=== PATIENT | female | born 1975 | race Caucasian/White ===

== ENCOUNTER 2019-12-08 16:43 | Outpatient (CLI) | payer BC, SELFPAY ==
[2019-12-08 17:15] LABS: HCT 39.1 % (36.0-46.0); Mean Corp. HGB Concentration 30.7 g/dL (32.0-36.0); Mean Corpuscular Hemoglobin 27.9 pg (27.0-33.0); Mean Corpuscular Volume 90.9 fL (80-95); Mean Platelet Volume 10.2 fL (8.0-11.0); Platelet Count 361 x1000/uL (130-400); RBC Distribution Width 15.8 % (11.7-14.6); White Blood Cell Count 8.71 k/cumm (4.4-10.8)
[2019-12-08 17:25] LABS: INR 0.9 (0.9-1.1); PTT Activated 25.8 sec (21.0-31.4); Prothrombin Time 9.3 sec (9.3-11.0)
[2019-12-08 17:50] LABS: Anion Gap 12.1 mmol/L (3-11); BUN 10 mg/dL (7-18); CO2 23.9 mmol/L (21.0-32.0); CREATININE 0.73 mg/dL (0.55-1.02); Calcium 9.3 mg/dL (8.5-10.1); Chloride 105 mmol/L (98-107); Glucose 109 mg/dL (74-106); Potassium 4.6 mmol/L (3.5-5.1); Sodium 141 mmol/L (136-145)
== END 2019-12-08 17:03 ==
PROVIDERS: Obstetrics & Gynecology; PCP Family Medicine; Visit Provider Family Medicine
DX: N85.8 Other specified noninflammatory disorders of uterus (principal); N93.8 Other specified abnormal uterine and vaginal bleeding
CPT/HCPCS: 36415; 80048; 85027; 85610; 85730

== ENCOUNTER 2019-12-15 10:09 | Outpatient (REF) | payer BC, SELFPAY ==
--- NOTE | 2019-12-15 09:45 | PAPFT_PTH ---
PATIENT: KAJAL MARTINEZ LOC: [facility] U#:[id number] AGE/SX: 44/F ROOM: RE12/15/[address]: TERI Dno : 1975 BED: DIS: 12/15/2019 SPEC #: [id number] RECD: 12/15/19 12:53 STATUS: MUNDO REYael #: [id number] MARCIAL: 12/15/19 09:[address]: Omayra Wells DEPT: [facility] Cytology RECD BY: Jenni Meyers ENTERED: 12/15/19 12:54 SP TYPE: PAPFT OTHR DR: Faustino Dahl Tissues: 1 - CX/ENDOCX FOR PAP SMEARS Procedures: PAP THIN PREP/[facility] Screening Comments: [id number] (UNSATISFACTORY FOR EVALUATION) (PLEASE GALVAN - PT SCHEDULED FOR SURGERY)
== END 2019-12-15 10:29 ==
LOC: LBN 10:09
PROVIDERS: PCP Family Medicine; Visit Provider Nurse Practitioner Family
DX: Z12.4 Encounter for screening for malignant neoplasm of cervix (principal); Z11.51 Encounter for screening for human papillomavirus (HPV)
CPT/HCPCS: 88142

== ENCOUNTER 2019-12-22 09:44 | Outpatient (REF) | payer BC, SELFPAY ==
--- NOTE | 2019-12-22 08:50 | PAPFT_PTH ---
PATIENT: KAJAL MARTINEZ LOC: [facility] U#:[id number] AGE/SX: 44/F ROOM: RE12/22/[address]: Tanya Ervin : 1975 BED: DIS: 12/22/2019 SPEC #: [id number] RECD: 12/22/19 12:50 STATUS: MUNDO PERSAUD #: [id number] MARCIAL: 12/22/19 08:[address]: Tanya Ervin DEPT: [facility] Cytology RECD BY: Jenni Meyers ENTERED: 12/22/19 12:51 SP TYPE: PAPFT OTHR DR: Faustino Dahl Tissues: 1 - CX/ENDOCX FOR PAP SMEARS Procedures: PAP THIN PREP/UVM Screening HPV DNA PROBE Comments: [id number]
[2019-12-23 14:53] LABS: Chlamydia Result Negative (Negative); GC Result Negative (Negative)
== END 2019-12-22 10:04 ==
LOC: LBN 09:44
PROVIDERS: PCP Family Medicine; Visit Provider Obstetrics & Gynecology Gynecology
DX: Z11.3 Encounter for screening for infections with a predominantly sexual mode of transmission (principal); Z12.4 Encounter for screening for malignant neoplasm of cervix
CPT/HCPCS: 87491; 87591; 88142; 87624

== ENCOUNTER 2020-02-13 02:15 | Outpatient (CLI) | payer BC, SELFPAY ==
[2020-02-13 11:48] LABS: Abs Immature Grans 0.01 k/cumm (0.0-0.09); Absolute Basophil Count 0.02 k/cumm (0.0-0.2); Absolute Eosinophil Count 0.11 k/cumm (0.0-0.7); Absolute Lymphocyte Count 1.94 k/cumm (1.2-3.4); Absolute Monocyte Count 0.66 k/cumm (0.11-0.7); Absolute Neutrophil Count 4.49 k/cumm (1.2-6.7); Basophils % 0.3; Eosinophils % 1.5; HCT 40.2 % (36.0-46.0); HGB 12.4 g/dL (12.0-15.5); Immature Grans % 0.1 %; Lymphocytes % 26.8; Mean Corp. HGB Concentration 30.8 g/dL (32.0-36.0); Mean Corpuscular Hemoglobin 25.8 pg (27.0-33.0); Mean Corpuscular Volume 83.6 fL (80-95); Mean Platelet Volume 10.9 fL (8.0-11.0); Monocytes % 9.1; Neutrophils % 62.2; Platelet Count 262 x1000/uL (130-400); RBC 4.81 m/cumm (4.00-5.20); RBC Distribution Width 14.4 % (11.7-14.6); White Blood Cell Count 7.23 k/cumm (4.4-10.8)
[2020-02-13 12:16] LABS: ALT 33 U/L (14-59); AST 19 U/L (15-37); Albumin 4.2 g/dL (3.4-5.0); Alkaline Phosphatase 83 U/L (46-116); Anion Gap 10.3 mmol/L (3-11); BUN 21 mg/dL (7-18); Bilirubin, Total 0.4 mg/dL (0.2-1.0); CO2 26.7 mmol/L (21.0-32.0); CREATININE 0.89 mg/dL (0.55-1.02); Calcium 9.6 mg/dL (8.5-10.1); Chloride 103 mmol/L (98-107); Glucose 105 mg/dL (74-106); Potassium 4.6 mmol/L (3.5-5.1); Sodium 140 mmol/L (136-145); Total Protein 7.9 g/dL (6.4-8.2)
[2020-02-13 12:17] LABS: HCG Quant, Pregnancy < 1 mIU/mL (1-3)
[2020-02-15 08:26] LABS: COVID-19 RT-PCR UVMMC Result Negative (Negative)
== END 2020-02-13 02:35 ==
PROVIDERS: PCP Family Medicine; Visit Provider Obstetrics & Gynecology Gynecology
DX: N93.9 Abnormal uterine and vaginal bleeding, unspecified (principal); N94.6 Dysmenorrhea, unspecified; D25.9 Leiomyoma of uterus, unspecified; Z11.59 Encounter for screening for other viral diseases
CPT/HCPCS: 36415; 80053; 86850; 86900; 86901; U0003; 84702; 85025

== ENCOUNTER 2020-02-16 16:16 | Observation (INO) | payer BC, SELFPAY ==
[2020-02-16] VITALS (18 sets, daily range): BP systolic 92–157; BP diastolic 51–97; PULSE 64–87; RESP 12–24; TEMP 36.4–36.7; O2SAT 93–100
[2020-02-16] MEDS: Lactated Ringers 1,000 ML 125 ML IV ×3 (11:55→23:03)
[2020-02-16] MEDS: ceFAZolin 2 GM/50 ML BAG IVPB (13:13)
--- NOTE | 2020-02-16 15:20 | UTER_PTH ---
PATIENT: KAJAL MARTINEZ LOC: [facility] U#:[id number] AGE/SX: 44/F ROOM: OBS.306 RE02/16/[address]: Tanya Ervin : 1975 BED: A DIS: 02/17/2020 SPEC #: [id number] RECD: 02/16/20 16:17 STATUS: MUNDO REQ #: [id number] MARCIAL: 02/16/20 15:[address]: Tanya Ervin DEPT: Surgical Specimen RECD BY: Jenni Meyers ENTERED: 02/16/20 16:18 SP TYPE: UTER OTHR DR: Faustino Dahl Tissues: 1 - UTERUS W OR W/O OVARIES(NOT TUMOR/PROLAPSE) Procedures: GROSS AND MICRO LEVEL 5 Comments: [id number]
[2020-02-16] MEDS: Bupivacaine 0.25% Pres-Free 30 ML VIAL (15:35)
[2020-02-16] MEDS: Docusate Sodium 100 MG CAP PO (20:09)
[2020-02-17] VITALS (7 sets, daily range): BP systolic 116–117; BP diastolic 74–79; PULSE 58–68; RESP 16–18; TEMP 36.5–36.9; O2SAT 97–99
[2020-02-17] MEDS: Ondansetron 4 MG/2 ML VIAL IVP (02:35)
[2020-02-17] MEDS: Ibuprofen 600 MG TAB PO (06:08)
[2020-02-17] MEDS: Acetaminophen 500 MG TAB PO (06:08)
[2020-02-17] MEDS: Lactated Ringers 1,000 ML 125 ML IV (06:31)
[2020-02-17 07:13] LABS: HCT 37.4 % (36.0-46.0); HGB 11.5 g/dL (12.0-15.5); Mean Corp. HGB Concentration 30.7 g/dL (32.0-36.0); Mean Corpuscular Hemoglobin 25.8 pg (27.0-33.0); Mean Corpuscular Volume 83.9 fL (80-95); Mean Platelet Volume 10.9 fL (8.0-11.0); Platelet Count 247 x1000/uL (130-400); RBC 4.46 m/cumm (4.00-5.20); RBC Distribution Width 14.6 % (11.7-14.6); White Blood Cell Count 13.11 k/cumm (4.4-10.8)
[2020-02-17 07:26] LABS: Anion Gap 4.9 mmol/L (3-11); BUN 14 mg/dL (7-18); CO2 31.1 mmol/L (21.0-32.0); CREATININE 0.78 mg/dL (0.55-1.02); Calcium 9.3 mg/dL (8.5-10.1); Chloride 102 mmol/L (98-107); Glucose 106 mg/dL (74-106); Potassium 4.3 mmol/L (3.5-5.1); Sodium 138 mmol/L (136-145)
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
[2020-02-17] MEDS: Docusate Sodium 100 MG CAP PO (08:16)
--- NOTE | 2020-02-18 10:24 | ROE_ITS ---
Date of service: 02/18/20 Time of Service: 10:24 Operative Note Operative Note DATE OF PROCEDURE: 02/16/20 PRE-OP DIAGNOSIS: Abnormal uterine bleeding dysmenorrhea and fibroid uterus POST-OP DIAGNOSIS: same PROCEDURE: Laparoscopic-assisted vaginal hysterectomy with bilateral salpingectomy and bladder cystoscopy SURGEON: Tanya Ervin APPLICATION ASSISTANT: Roc Harrell ANESTHESIA: GETA and spinal ESTIMATED BLOOD LOSS: 100 PATHOLOGY: other (Uterus cervix and fallopian tubes to pathology) COMPLICATIONS: None Patient was transported to: PACU Patient's condition: stable Indications: Patient is a 44-year-old P4 female with a enlarged fibroid uterus dysmenorrhea and menorrhagia not responsive to medical therapy. Findings: Fibroid uterus with a large fundal fibroid and smaller anterior wall fibroid in the lower uterine segment. Procedure Description: Patient was taken to the operating room she is placed in the sitting position and spinal anesthesia was administered without difficulty. Preoperative antibiotics were administered in the surgical timeout was performed. She was then placed in the dorsal supine position and general endotracheal anesthesia was administered without difficulty. She is placed in the dorsal lithotomy position in yellowfin stirrups prepped and draped in the usual sterile fashion. Carvalho catheter was inserted to gravity drainage. A Rosales uterine manipulator was inserted into the uterine cavity and a tenaculum attached to the anterior lip of the cervix and both instruments remained in place for the laparoscopic surgery. Attention was turned to the patient's abdomen where a vertical skin incision was made in the umbilical fold after infiltration of the site with quarter percent Marcaine without epinephrine. Through this incision a varies needle was introduced and intra-abdominal placement confirmed by drop in the intra- abdominal pressure. Pneumoperitoneum was established and 12 mm Visiport was then placed under direct observation into the abdominal cavity. Patient was placed in Trendelenburg the sites for insertion infiltrated with quarter percent Marcaine without epinephrine and two 5 mm lower ports were placed in the right and left lower quadrants respectively. Left round ligament was clamped cauterized and transected using LigaSure cautery. The left fallopian tube was grasped and followed out to its fimbriated end and the mesosalpinx was clamped, advised, and transected using LigaSure electrocautery to the level of the uterine cornua. The attachments of the right ovary to the body of the uterus were sequentially clamped, cauterized, and transected with the LigaSure device. The left anterior and posterior portions of the broad ligament were then clamped, cauterized, and transected to the level of the bladder flap which was dissected off of the lower uterine segment with a combination of gentle dissection and electrocautery. The left uterine vessels were skeletonized and sequentially clamped cauterized and transected. Attention was turned to the patient's right side where in a similar fashion LigaSure device was used to separate the right fallopian tube from its attachment to the ovary and the right ovary's attachments to the uterine serosa. Both the anterior and posterior leaves of the broad ligament were opened and the anterior leaf off of the lower uterine segment and the bladder flap created. Right uterine vessels were skeletonized clamped cauterized and transected. Attention was then turned to the vaginal portion of the procedure. Pneumoperitoneum was reduced instruments removed from the patient's abdomen with trocars left in place. Uterine manipulator and single-tooth tenaculum were removed to Crispin clamps were placed on the anterior and posterior portions of the uterine cervix and the body of the cervix was cauterized with the Bovie electrocautery in a circumferential fashion. The uterosacral ligaments were shortened digitally and the bladder was dissected off of the body of the cervix and the anterior cul-de-sac was entered sharply with a Metzenbaum scissors. Curved Truong scissors were used to enter the posterior cul-de-sac and a long duckbill speculum was placed through this incision and held in place the major the case. The right uterosacral cardinal ligament complex was clamped transected and suture-ligated and held long. Similar technique was carried out on the contralateral uterosacral/cardinal ligament complex. The remaining right and left broad ligament was sequentially clamped cauterized and transected to the level of the uterine cornua. Any remaining attachments of the broad ligament to the uterus were clamped cauterized and transected. The uterus with attached fallopian tubes was delivered off of the operative field. The vaginal cuff was inspected noted be hemostatic and closed in a vertical fashion with a running locked suture of 0 Vicryl. At the completion of the vaginal portion of the procedure attention was then turned to the patient's abdomen and pneumoperitoneum was once again inflated laparoscope was used to carefully inspect the vaginal cuff which is noted to be hemostatic with no involvement within the cuff of visceral organs. On direct visualization both 5 mm ports removed and the 12 mm trocar removed after fascia of the 12 mm umbilical site reapproximated with a running suture of 0 Vicryl. All skin of the trocar sites was then closed with 3-0 Vicryl suture in a subcuticular fashion. A bladder cystoscopy was then performed with normal saline cleaning as the distention medium. Bladder surface was intact and both ureteral jets were observed. The cystoscope was removed Carvalho catheter was reinserted to gravity drainage patient was placed in the dorsal supine position awakened extubated and transported recovery area in stable condition all sponge lap needle counts correct x2
== END 2020-02-17 09:45 | disposition home or self-care (01) ==
LOC: OBS 17:13
PROVIDERS: Obstetrics & Gynecology; Admitting Provider Obstetrics & Gynecology Gynecology; PCP Family Medicine; Visit Provider Obstetrics & Gynecology Gynecology
PROC: 0UT9FZZ Resection of Uterus, Via Natural or Artificial Opening With Percutaneous Endoscopic Assistance (ICD-10-PCS; CPT 58554; principal; 2020-02-16 12:00)
DX: N93.9 Abnormal uterine and vaginal bleeding, unspecified (principal); N94.6 Dysmenorrhea, unspecified; D25.1 Intramural leiomyoma of uterus; D25.2 Subserosal leiomyoma of uterus; N83.8 Other noninflammatory disorders of ovary, fallopian tube and broad ligament; Z90.710 Acquired absence of both cervix and uterus; Z90.79 Acquired absence of other genital organ(s)
CPT/HCPCS: 58554; 36415; 80048; 85027; NC; 88307; J0131; J0690; J1100; J1885; J2001; J2250; J2405; J2704; J3010